=== PATIENT | female | born 1950 | race Caucasian/White ===

== ENCOUNTER → 2018-10-15 | Outpatient (CLI) | payer MEDICARE ==
[~2018-10-15] MED LIST: ALL DAY ALLERGY10 M1; Aspirin EC81 MG PO; Benadryl25 MG; CARV6.25; CETI5 PO; Cytomel5 MCG PO; HYDACE5 PO; HYDCOR10 PO; IRON PO; LEVSOD75 PO; METO25 PO; NAPR550; NIFE60ER; NYST100000 PO; ROSU10TA PO; VENL150ER PO; VENL75; VYTORIN; XARELTO20 MG PO; ZOLP10 PO; Zestril40 MG PO
[2018-10-16 14:31] LABS: Adenovirus F 40/41 Not Detected (NOT DETECT); Astrovirus Not Detected (NOT DETECT); Campylobacter Sp Not Detected (NOT DETECT); Cryptosporidium Not Detected (NOT DETECT); Cyclospora Cayetanensis Not Detected (NOT DETECT); E. Coli O157 Not Detected (NOT DETECT); Entamoeba Histolytica Not Detected (NOT DETECT); Enteroaggregative E. coli-EAEC Not Detected (NOT DETECT); Enteropathogenic E. coli-EPEC Not Detected (NOT DETECT); Enterotoxigenic E. coli-ETEC Not Detected (NOT DETECT); Giardia Lamblia Not Detected (NOT DETECT); Norovirus GI/GII Not Detected (NOT DETECT); Plesiomonas Shigelloides Not Detected (NOT DETECT); Rotavirus A Not Detected (NOT DETECT); Salmonella Sp Not Detected (NOT DETECT); Sapovirus Not Detected (NOT DETECT); Shiga Toxin-prod E. coli-STEC Not Detected (NOT DETECT); Shigella/Enteroin E. coli-EIEC Not Detected (NOT DETECT); Vibrio Cholerae Not Detected (NOT DETECT); Vibrio Sp Not Detected (NOT DETECT); Yersinia Enterocolitica Not Detected (NOT DETECT)
== END | disposition home or self-care (01) ==
LOC: LAB 08:46 → LAB SHORT 08:46 → LAB FUT 10-13 15:00
PROVIDERS: Legal Medicine
DX: R19.7 Diarrhea, unspecified (principal)
CPT/HCPCS: 87507

== ENCOUNTER 2021-02-05 17:58 | Emergency (ER) | payer MEDICARE | END 2021-02-05 18:15 | disposition home or self-care (01) | LOC: ER 17:58 | DX: U07.1 COVID-19 (principal); Z88.0 Allergy status to penicillin; Z79.899 Other long term (current) drug therapy; Z79.82 Long term (current) use of aspirin; Z87.891 Personal history of nicotine dependence | CPT/HCPCS: 99282 ==

== ENCOUNTER 2021-02-14 13:09 | Inpatient (IN) | payer MEDICARE ==
[~2021-02-14] VITALS: Ht 175.3 cm; Wt 139.0 kg
[2021-02-14 14:12] LABS: BASOPHILS ABSOLUTE AUTO 0.07 K/mm3 (0.00-0.23); BASOPHILS PERCENT AUTO 0 % (0-2); EOSINOPHILS PERCENT AUTO 0 % (0-6); Hematocrit 43.5 % (33.0-51.0); Hemoglobin 14.3 g/dL (11.5-16.0); IMMATURE GRAN ABSOLUTE AUTO 0.24 K/mm3 (0.00-0.10); IMMATURE GRAN PERCENT AUTO 1 % (0-1); LYMPHOCYTES ABSOLUTE AUTO 1.06 K/mm3 (0.84-5.20); LYMPHOCYTES PERCENT AUTO 5 % (21-46); MONOCYTES ABSOLUTE AUTO 1.69 K/mm3 (0.16-1.47); MONOCYTES PERCENT AUTO 8 % (4-13); Mean Corpuscular HGB Conc 32.9 g/dL (31.5-36.5); Mean Corpuscular Volume 79 fL (80-100); NEUTROPHILS ABSOLUTE AUTO 17.05 K/mm3 (1.96-9.15); NEUTROPHILS PERCENT AUTO 85 % (41-73); NRBC ABSOLUTE 0.02 K/mm3 (0.00-0.02); NRBC Auto 0.1 /100 WBC (0.0-0.2); Platelet Count 378 K/mm3 (150-400); RDW Coefficient Variation 13.9 % (11.7-14.2); RDW Standard Deviation 40.1 fL (35.1-46.3); Red Blood Cell Count 5.49 M/mm3 (3.80-5.20); White Blood Cell Count 20.11 K/mm3 (4.00-11.30)
[2021-02-14 14:39] LABS: Magnesium, Blood 2.4 mg/dL (1.6-2.4)
[2021-02-14 14:52] LABS: Albumin, Blood 2.9 g/dL (3.4-5.0); Albumin/Globulin Ratio 0.7 (0.8-1.8); Bilirubin, Total 0.7 mg/dL (0.1-1.0); Bun/Creatinine Ratio 9.7 (12.0-20.0); Calcium, Blood 8.9 mg/dL (8.5-10.1); Creatinine, Blood 18.3 mg/dL (0.40-1.00); Globulin, Blood 4.1 g/dL (2.2-4.0); Potassium, Blood 4.6 mmol/L (3.5-5.5)
[2021-02-14 15:45] LABS: Source, Urine Clean Catch
[2021-02-14 15:57] LABS: Appearance, Urine Hazy (Clear); Blood, Urine 4+ (Neg); Color, Urine Yellow (P-Yellow); Glucose Qualitative, Urine Neg (Neg); Ketones, Urine 1+ (Neg); Leukocyte Esterase, Urine 3+ (Neg); Nitrite, Urine Neg (Neg); Protein, Urine 3+ (Neg); Specific Gravity, Urine 1.025 (1.003-1.022); Urobilinogen, Urine NORM (Normal)
[2021-02-14 16:02] LABS: Bilirubin, Urine 2+ (Neg)
[2021-02-14 16:07] LABS: Bacteria Many /hpf; Squamous Epithelial Cells Rare /hpf (Few); White Blood Cells, Urine 50-100 /hpf (0-5)
[2021-02-14] MEDS ORDERED: TRAZ50 (19:54)
[2021-02-15 06:14] LABS: BASOPHILS ABSOLUTE AUTO 0.06 K/mm3 (0.00-0.23); BASOPHILS PERCENT AUTO 0 % (0-2); EOSINOPHILS ABSOLUTE AUTO 0.06 K/mm3 (0.00-0.68); EOSINOPHILS PERCENT AUTO 0 % (0-6); Hematocrit 36.6 % (33.0-51.0); Hemoglobin 12.7 g/dL (11.5-16.0); IMMATURE GRAN ABSOLUTE AUTO 0.11 K/mm3 (0.00-0.10); IMMATURE GRAN PERCENT AUTO 1 % (0-1); LYMPHOCYTES ABSOLUTE AUTO 1.54 K/mm3 (0.84-5.20); LYMPHOCYTES PERCENT AUTO 11 % (21-46); MONOCYTES ABSOLUTE AUTO 1.61 K/mm3 (0.16-1.47); MONOCYTES PERCENT AUTO 12 % (4-13); Mean Corpuscular HGB 26.6 pg (26.0-34.0); Mean Corpuscular HGB Conc 34.7 g/dL (31.5-36.5); Mean Corpuscular Volume 77 fL (80-100); Mean Platelet Volume 10.4 fL (9.1-12.4); NEUTROPHILS ABSOLUTE AUTO 10.59 K/mm3 (1.96-9.15); NEUTROPHILS PERCENT AUTO 76 % (41-73); Platelet Count 278 K/mm3 (150-400); RDW Coefficient Variation 13.3 % (11.7-14.2); RDW Standard Deviation 37.2 fL (35.1-46.3); Red Blood Cell Count 4.78 M/mm3 (3.80-5.20); White Blood Cell Count 13.97 K/mm3 (4.00-11.30)
[2021-02-15 06:46] LABS: Magnesium, Blood 2.4 mg/dL (1.6-2.4)
[2021-02-15 07:03] LABS: Albumin, Blood 2.4 g/dL (3.4-5.0); Anion Gap 18 mmol/L (6-16); Blood Urea Nitrogen 180 mg/dL (8-24); Bun/Creatinine Ratio 10.7 (12.0-20.0); CO2, Blood 17 mmol/L (21-32); Calcium, Blood 7.6 mg/dL (8.5-10.1); Chloride, Blood 97 mmol/L (98-108); Glomerular Filtration Rate 2 (60-); Glucose, Blood 121 mg/dL (70-99); Phosphorus, Blood 7.9 mg/dL (2.5-4.9); Potassium, Blood 3.7 mmol/L (3.5-5.5); Sodium, Blood 132 mmol/L (136-145)
--- NOTE | 2021-02-15 20:24 | NUR ---
SHIFT SUMMARY: NO ACUTE EVENTS TO REPORT THIS SHIFT. NO C/O PAIN THIS SHIFT. PT A&O; CALM AND COOPERATIVE WITH CARE. IV ABX & BICARB CONTINUING. REPORT GIVEN TO ONCOMING RN.
[2021-02-16 05:09] LABS: Hematocrit 38.1 % (33.0-51.0); Hemoglobin 13.1 g/dL (11.5-16.0)
[2021-02-16 05:52] LABS: Magnesium, Blood 2.3 mg/dL (1.6-2.4)
[2021-02-16 06:02] LABS: Albumin, Blood 2.4 g/dL (3.4-5.0); Anion Gap 13 mmol/L (6-16); CO2, Blood 26 mmol/L (21-32); Calcium, Blood 7.7 mg/dL (8.5-10.1); Chloride, Blood 95 mmol/L (98-108); Glucose, Blood 132 mg/dL (70-99); Phosphorus, Blood 6.3 mg/dL (2.5-4.9); Potassium, Blood 3.7 mmol/L (3.5-5.5); Sodium, Blood 134 mmol/L (136-145)
[2021-02-16 06:04] LABS: Blood Urea Nitrogen 165 mg/dL (8-24); Bun/Creatinine Ratio 13.9 (12.0-20.0); Glomerular Filtration Rate 3 (60-)
--- NOTE | 2021-02-16 06:32 | NUR ---
SHIFT SUMMARRY;QUIET IN HER ROOM MOST OF THE NIGHT. LAB REPORTS CREATININE OF 11.9 WHICH IS DOWN 16.1. NO ACUTE ISSUES
[2021-02-17 05:10] LABS: Hematocrit 39.6 % (33.0-51.0); Hemoglobin 13.3 g/dL (11.5-16.0)
--- NOTE | 2021-02-17 05:37 | NUR ---
SHIFT SUMMARY AOX4. VSS. SPO2 >90% ON RA. COVID +. DENIES SOB @REST. REPORTS CHRONIC 3-4/10 PAIN IN R KNEE, MEDICATED 1X c TYLENOL & REPOSITIONED. CLEANSED FOLDS & APPLIED ABD PADS, ALONG c MICONAZOLE POWDER. YEASTY RASH & A FEW ULCERATIONS UNDER PANNUS. CALL LIGHT IN REACH.
[2021-02-17 05:45] LABS: Albumin, Blood 2.6 g/dL (3.4-5.0); Anion Gap 12 mmol/L (6-16); Blood Urea Nitrogen 144 mg/dL (8-24); Bun/Creatinine Ratio 19.7 (12.0-20.0); CO2, Blood 25 mmol/L (21-32); Calcium, Blood 7.8 mg/dL (8.5-10.1); Chloride, Blood 102 mmol/L (98-108); Glomerular Filtration Rate 6 (60-); Glucose, Blood 107 mg/dL (70-99); Phosphorus, Blood 5.2 mg/dL (2.5-4.9); Potassium, Blood 3.1 mmol/L (3.5-5.5); Sodium, Blood 139 mmol/L (136-145)
--- NOTE | 2021-02-17 18:11 | NUR ---
PATIENT A/OX4, CALLS APPROPRIATELY FOR ASSISTANCE THIS SHIFT. CONTINUES ON RA, VSS. PAINFUL YEAST RASH UNDER PANNUS AND R BREAST, WOUNDS CLEANSED AND PILLOW CASE PLACED UNDER FOLD. ANTIFUNGAL POWDER APPLIED TO FOLDS AND ORAL DIFFLUCAN GIVEN TO TREAT. NS @ 50ML/HR INFUSING. TOLERATING RENAL DIET. CALM AND COOPERATIVE WITH CARE.
--- NOTE | 2021-02-18 06:13 | NUR ---
SHIFT SUMMARY AOX4. VSS. SPO2 >90% ON RA. DENIES SOB. COVID +. REPORTS FEELING THIRSTY & THE ABILITY TO SMELL. CLEANSED & DRIED PANNUS ULCER, HAS MOD AMOUNT SEROSANGUINOUS DRAINAGE. HAD SMALL INCONT/CONT LOOSE BROWN/YELLOW BM THIS AM. INCONT OF URINE. CALL LIGHT IN REACH.
[2021-02-18 08:35] LABS: Albumin, Blood 2.7 g/dL (3.4-5.0); Anion Gap 10 mmol/L (6-16); Blood Urea Nitrogen 110 mg/dL (8-24); Bun/Creatinine Ratio 28.9 (12.0-20.0); CO2, Blood 24 mmol/L (21-32); Calcium, Blood 8.9 mg/dL (8.5-10.1); Chloride, Blood 109 mmol/L (98-108); Creatinine, Blood 3.81 mg/dL (0.40-1.00); Glomerular Filtration Rate 12 (60-); Glucose, Blood 102 mg/dL (70-99); Phosphorus, Blood 3.7 mg/dL (2.5-4.9); Potassium, Blood 3.5 mmol/L (3.5-5.5); Sodium, Blood 143 mmol/L (136-145)
--- NOTE | 2021-02-18 14:27 | NUR ---
pt told she tested + for covid 01/28, clinic said it was the , pt acknowleged she was too hopeful and that the sounded right, informmed and infection control, pt states she is planning on going home tomorrow
--- NOTE | 2021-02-19 04:50 | NUR ---
PT A&OX4. PT COMPLAINED OF LEFT KNEE PAIN, PAIN MEDICINE GIVEN. PT CALM AND IS RESTING. VITALS STABLE. NO ACUTE EVENTS OVER NIGHT.
[2021-02-19 05:29] LABS: BASOPHILS ABSOLUTE AUTO 0.06 K/mm3 (0.00-0.23); BASOPHILS PERCENT AUTO 1 % (0-2); EOSINOPHILS ABSOLUTE AUTO 0.26 K/mm3 (0.00-0.68); EOSINOPHILS PERCENT AUTO 3 % (0-6); Hematocrit 39.2 % (33.0-51.0); Hemoglobin 12.7 g/dL (11.5-16.0); IMMATURE GRAN ABSOLUTE AUTO 0.12 K/mm3 (0.00-0.10); IMMATURE GRAN PERCENT AUTO 1 % (0-1); LYMPHOCYTES ABSOLUTE AUTO 1.76 K/mm3 (0.84-5.20); LYMPHOCYTES PERCENT AUTO 19 % (21-46); MONOCYTES ABSOLUTE AUTO 1.35 K/mm3 (0.16-1.47); MONOCYTES PERCENT AUTO 15 % (4-13); Mean Corpuscular HGB 26.6 pg (26.0-34.0); Mean Corpuscular HGB Conc 32.4 g/dL (31.5-36.5); Mean Corpuscular Volume 82 fL (80-100); Mean Platelet Volume 10.5 fL (9.1-12.4); NEUTROPHILS ABSOLUTE AUTO 5.72 K/mm3 (1.96-9.15); NEUTROPHILS PERCENT AUTO 62 % (41-73); Platelet Count 261 K/mm3 (150-400); RDW Coefficient Variation 13.6 % (11.7-14.2); RDW Standard Deviation 40.2 fL (35.1-46.3); Red Blood Cell Count 4.78 M/mm3 (3.80-5.20); White Blood Cell Count 9.27 K/mm3 (4.00-11.30)
[2021-02-19 06:01] LABS: Albumin, Blood 2.5 g/dL (3.4-5.0); Anion Gap 6 mmol/L (6-16); Blood Urea Nitrogen 80 mg/dL (8-24); Bun/Creatinine Ratio 30.7 (12.0-20.0); CO2, Blood 27 mmol/L (21-32); Calcium, Blood 8.4 mg/dL (8.5-10.1); Chloride, Blood 112 mmol/L (98-108); Creatinine, Blood 2.61 mg/dL (0.40-1.00); Glomerular Filtration Rate 18 (60-); Glucose, Blood 96 mg/dL (70-99); Magnesium, Blood 1.6 mg/dL (1.6-2.4); Phosphorus, Blood 2.9 mg/dL (2.5-4.9); Potassium, Blood 3.9 mmol/L (3.5-5.5); Sodium, Blood 145 mmol/L (136-145)
--- NOTE | 2021-02-19 18:38 | NUR ---
a+o, cleaned and treated skin folds, medicated as prescribed, call light in reach, no s/sx of infection or infiltration, rm air, will continue to monitor and treat until share report with noc nurse
[2021-02-20 05:33] LABS: Hemoglobin 12.6 g/dL (11.5-16.0)
--- NOTE | 2021-02-20 05:42 | NUR ---
PT ORIENTED. MASD CLEANED AND REDRESED. PT NOT REPORTING ANY PAIN. RESTING COMFORTABLY.
[2021-02-20 06:08] LABS: Albumin, Blood 2.4 g/dL (3.4-5.0); Anion Gap 6 mmol/L (6-16); Blood Urea Nitrogen 51 mg/dL (8-24); Bun/Creatinine Ratio 24.5 (12.0-20.0); CO2, Blood 26 mmol/L (21-32); Calcium, Blood 8.2 mg/dL (8.5-10.1); Chloride, Blood 114 mmol/L (98-108); Creatinine, Blood 2.08 mg/dL (0.40-1.00); Glomerular Filtration Rate 24 (60-); Glucose, Blood 97 mg/dL (70-99); Phosphorus, Blood 2.4 mg/dL (2.5-4.9); Potassium, Blood 3.7 mmol/L (3.5-5.5); Sodium, Blood 146 mmol/L (136-145)
[2021-02-20] MEDS ORDERED: ELIQUIS5 M2 PO (13:10)
[2021-02-20] MEDS ORDERED: LACT PO (13:13)
[2021-02-20] MEDS ORDERED: CIPR250 PO (13:13)
[2021-02-20] MEDS ORDERED: CHOLESTYRAMI239.4 G1 PO (13:13)
--- NOTE | 2021-02-20 14:56 | NUR ---
DISCHARGE NOTE PT IV REMOVED BY THIS RN PER DOCUMENTATION. DC INSTRUCTIONS AND MEDICATIONS REVIEWED WITH PT WHO VERBALIZED UNDERSTANDING. PT ASSISTED INTO HOME CLOTHING BY PAPER BALER. BELONGINGS GATHERED FROM ROOM. PT ASSISTED INTO WHEELCHAIR BY PAPER BALER. PT HAS LEFT BUILDING TO PRIVATE VEHICLE WITH BELONGINGS PRESENT.
== END 2021-02-20 14:55 | disposition home or self-care (01) | DRG 871 ==
LOC: ER 13:09 → MEDS 17:32 → ENPENDDIS 02-20 12:33 → MEDS 02-20 14:55
PROVIDERS: Internal Medicine; Internal Medicine Nephrology; Physician Assistant; ADMIT Internal Medicine
DX: A41.59 Other Gram-negative sepsis (principal); U07.1 COVID-19; Z68.41 Body mass index [BMI] 40.0-44.9, adult; N17.9 Acute kidney failure, unspecified; E87.1 Hypo-osmolality and hyponatremia; E87.2 Acidosis; I48.20 Chronic atrial fibrillation, unspecified; A08.39 Other viral enteritis; N30.00 Acute cystitis without hematuria; E87.0 Hyperosmolality and hypernatremia; Z16.11 Resistance to penicillins; E03.9 Hypothyroidism, unspecified; E86.9 Volume depletion, unspecified; N18.30 Chronic kidney disease, stage 3 unspecified; E86.0 Dehydration; E78.5 Hyperlipidemia, unspecified; D63.1 Anemia in chronic kidney disease; E88.09 Other disorders of plasma-protein metabolism, not elsewhere classified; E66.01 Morbid (severe) obesity due to excess calories; M79.3 Panniculitis, unspecified; R65.20 Severe sepsis without septic shock; B37.2 Candidiasis of skin and nail; E83.39 Other disorders of phosphorus metabolism; E87.6 Hypokalemia; E83.42 Hypomagnesemia; K58.9 Irritable bowel syndrome, unspecified; I12.9 Hypertensive chronic kidney disease with stage 1 through stage 4 chronic kidney disease, or unspecified chronic kidney disease; Z90.49 Acquired absence of other specified parts of digestive tract; Z98.890 Other specified postprocedural states; Z88.0 Allergy status to penicillin; Z86.16 Personal history of COVID-19; Z98.42 Cataract extraction status, left eye; Z98.41 Cataract extraction status, right eye; Z79.82 Long term (current) use of aspirin; Z79.899 Other long term (current) drug therapy; Z79.01 Long term (current) use of anticoagulants
CPT/HCPCS: 36415; 71045; 74176; 80053; 80069; 81001; 82550; 83605; 83735; 84145; 84443; 85014; 85018; 85025; 86140; 87040; 87077; 87086; 87186; 93005; 93010; 96361; 96365; 97110; 97162; 97530; 99285-25; A9270; J0696; J0744; J2405; J3475; J3480; J7030; J7060; J7070; J7120

== ENCOUNTER → 2022-07-07 | Outpatient (CLI) | payer OTHER ==
[~2022-07-07] MED LIST changes: +CHOLESTYRAMI239.4 G1 PO; +CIPR250 PO; +ELIQUIS5 M2 PO; +LACT PO; +TRAZ50
[2022-07-08 11:20] LABS: Stool Occult Blood Guaiac 1 Neg (Neg)
== END ==
LOC: LAB 09:30 → LAB SHORT 09:30 → LAB FUT 08-24 15:40 → EDSTATUS 08-24 15:40
PROVIDERS: Internal Medicine Gastroenterology
DX: K76.0 Fatty (change of) liver, not elsewhere classified (principal); Z86.010 Personal history of colon polyps
CPT/HCPCS: 82270

== ENCOUNTER → 2024-03-15 | Outpatient (CLI) | payer OTHER ==
[~2024-03-15] MED LIST changes: +AZIT500 PO; +Clotrimazole-Be15 GM; +DULOXETINE HCL60 M1 PO; +ELLURA200 MG PO; +EZETIMIBE10 M6; +Lisinopril2.5 MG; +MOUNJARO7.5 MG/0.5 SQ; +PROG100 PO; +SULTRIDS PO; +TRAZ50 PO; +TURMERIC ROOT5000 GM; +[UNRECOGNIZED DRUG - OTHER]
[2024-03-15 13:37] LABS: BASOPHILS ABSOLUTE AUTO 0.09 K/mm3 (0.00-0.23); BASOPHILS PERCENT AUTO 1 % (0-2); EOSINOPHILS PERCENT AUTO 1 % (0-6); Hematocrit 43.2 % (33.0-51.0); Hemoglobin 13.7 g/dL (11.5-16.0); IMMATURE GRAN ABSOLUTE AUTO 0.02 K/mm3 (0.00-0.10); IMMATURE GRAN PERCENT AUTO 0 % (0-1); LYMPHOCYTES ABSOLUTE AUTO 2.04 K/mm3 (0.84-5.20); LYMPHOCYTES PERCENT AUTO 27 % (21-46); MONOCYTES ABSOLUTE AUTO 0.55 K/mm3 (0.16-1.47); MONOCYTES PERCENT AUTO 7 % (4-13); Mean Corpuscular HGB 27.3 pg (26.0-34.0); Mean Corpuscular HGB Conc 31.7 g/dL (31.5-36.5); Mean Corpuscular Volume 86 fL (80-100); Mean Platelet Volume 9.9 fL (9.1-12.4); NEUTROPHILS ABSOLUTE AUTO 4.68 K/mm3 (1.96-9.15); NEUTROPHILS PERCENT AUTO 63 % (41-73); Platelet Count 234 K/mm3 (150-400); RDW Coefficient Variation 12.5 % (11.7-14.2); RDW Standard Deviation 39.3 fL (35.1-46.3); Red Blood Cell Count 5.02 M/mm3 (3.80-5.20); White Blood Cell Count 7.48 K/mm3 (4.00-11.30)
[2024-03-15 13:48] LABS: Albumin, Blood 3.3 g/dL (3.4-5.0); Anion Gap 12 mmol/L (3-11); Blood Urea Nitrogen 15 mg/dL (8-24); Bun/Creatinine Ratio 7.7 (12.0-20.0); CO2, Blood 30 mmol/L (21-32); Chloride, Blood 103 mmol/L (98-108); Creatinine, Blood 1.95 mg/dL (0.40-1.00); Glomerular Filtration Rate 27 (60-); Glucose, Blood 91 mg/dL (70-99); Phosphorus, Blood 3.6 mg/dL (2.5-4.9); Potassium, Blood 3.9 mmol/L (3.5-5.5); Sodium, Blood 141 mmol/L (136-145)
== END | disposition home or self-care (01) ==
LOC: LAB SHORT 13:33 → LAB 13:33
PROVIDERS: Chiropractor
DX: N18.4 Chronic kidney disease, stage 4 (severe) (principal); N30.00 Acute cystitis without hematuria
CPT/HCPCS: 80069; 85025; 87077; 87086; 87186

== ENCOUNTER 2024-04-17 07:03 | Day surgery (SDC) | payer OTHER ==
[~2024-04-17] VITALS: Ht 172.7 cm; Wt 108.0 kg
[2024-04-17] VITALS (13 sets, daily range): BP systolic 86–140; BP diastolic 53–89
[~2024-04-17 07:03] MED LIST changes: +ALBU90OI INH; +Acetaminophen 500 MG Tab PO SCH; +CeFAZolin Sodium 2,000 MG in NS 100 ML IV SCH; +Chlorhexidine Mouth Care 15 ML UDC MT SCH; +DULO30 PO; -DULOXETINE HCL60 M1 PO; +EZET10 PO; -EZETIMIBE10 M6; +HYDCHL25 PO; +LISI20 PO; +Lactated Ringer's 1,000 ML IV SCH; -METO25 PO; +METOPROLOL TART PO; +MOUNJARO10 MG/0.5 SQ; +NITR.4SL SL; +OZEMPIC0.25 MG/02 SC; +OxyCODONE HCL 10 MG TABCR PO SCH; +Tranexamic Acid 100 ML IV SCH; +Vitamin D1000 UNI1 PO
[2024-04-17] MEDS ORDERED: CeFAZolin Sodium 2,000 MG VIAL ONE (07:25)
[2024-04-17] MEDS ORDERED: Ropivacaine 0.5% HCl/Pf 123.125 MG,EPINEPHrine HCL 0.25 MG,Clonidine HCl/Pf 40 MCG in N... INFIL SCH (07:45)
[2024-04-17] MEDS ORDERED: Ropivacaine 0.5% HCl/Pf 123.125 MG,EPINEPHrine HCL 0.25 MG,Ketorolac Tromethamine 15 MG... INFIL SCH (07:55)
--- NOTE | 2024-04-17 07:56 | NUR ---
History, Chart, Medications and Allergies reviewed before start of procedure. Patient confirms NPO status and agrees with scheduled surgery.
[2024-04-17] MEDS ORDERED: Dexamethasone Sod Phos 10 MG/ML 1ML VIAL ONE (08:12)
[2024-04-17] MEDS ORDERED: FentaNYL Citrate 50 MCG/ML 2 ML Injection ONE (08:12)
[2024-04-17] MEDS ORDERED: Lidocaine HCl 2% 20 ML MDV ONE (08:12)
[2024-04-17] MEDS ORDERED: Ondansetron HCl 2 MG / ML 2ML Vial ONE (08:12)
[2024-04-17] MEDS ORDERED: propofoL 40 ML IV ONE ×2 (08:12→09:23)
[2024-04-17] MEDS ORDERED: Bupivacaine 0.5% HCl 5 MG/ML 30MLVIAL ONE (08:13)
--- NOTE | 2024-04-17 08:37 | NUR ---
DENTURES LEFT IN PER DR COX. GLASSES BROUGHT TO PACU FOR SAFE KEEPING DURING SURGERY.
[2024-04-17] MEDS ORDERED: Phenylephrine HCl 10mg/ml 1 ml Vial ONE (09:11)
--- NOTE | 2024-04-17 09:28 | NUR ---
04/17/24 0928 Maryann Kidd SPINAL BLOCK COMPLETED BY DR. COX UPON ENTRY TO OR. PATIENT TOLERATED WELL.
[2024-04-17] MEDS ORDERED: Promethazine HCl 25 MG Tab PO PRN (09:40)
[2024-04-17] MEDS ORDERED: Lactated Ringer's 1,000 ML IV SCH (09:40)
[2024-04-17] MEDS ORDERED: Metoclopramide HCl 5MG / ML 2ML Vial IV PRN (09:40)
[2024-04-17] MEDS ORDERED: DiphenhydrAMINE HCL 25 MG Cap PO PRN (09:40)
[2024-04-17] MEDS ORDERED: Magnesium Hydroxide Conc 10 ML UDC PO PRN (09:40)
[2024-04-17] MEDS ORDERED: Bisacodyl 10 MG Supp PR PRN (09:40)
[2024-04-17] MEDS ORDERED: OxyCODONE HCL 5 MG TAB PO PRN ×2 (09:45)
[2024-04-17] MEDS ORDERED: Ondansetron HCl 2 MG / ML 2ML Vial IV PRN (09:45)
[2024-04-17] MEDS ORDERED: HYDROmorphone HCl/Pf 1MG SYR IV PRN (09:45)
[2024-04-17] MEDS ORDERED: FLU VACC TS2024-25(6MOS UP)/PF 45 MCG/0.5 ML SYRINGE IM PRN (09:45)
[2024-04-17] MEDS ORDERED: propofoL 20 ML IV ONE (09:54)
[2024-04-17] MEDS ORDERED: Insulin Regular 100 UNIT/ML 10ML Vial SC SCH (11:30)
--- NOTE | 2024-04-17 12:15 | NUR ---
PT ARRIVED TO THE ROOM FROM PACU AT APPROXIMATELY 1117. PT DENIES PAIN. SENSATION AT L2 UPON ARRIVAL AND PT UNABLE TO MOVE BLE. SPINAL ANESTHESIA SITE WNL. PT REPORTED MILD NAUSEA, ZOFRAN GIVEN. FAMILY AT BEDSIDE FOR SUPPORT. PT EDUCATED TO USE HER CALL LIGHT, IT WAS PLACED WITHIN REACH. VSS. PT ON RA.
[2024-04-17] MEDS ORDERED: Acetaminophen 500 MG Tab PO SCH (16:00)
[2024-04-17] MEDS ORDERED: CeFAZolin Sodium 2,000 MG in NS 100 ML IV SCH (16:00)
--- NOTE | 2024-04-17 16:41 | NUR ---
DISCHARGE PT PROVIDED WITH WRITTEN AND VERBAL DISCHARGE INSTRUCTIONS BY MAXIM ARIZA. CLEAN DRESSINGS PROVIDED. PT CLEARED THERAPY, SHE WAS ABLE TO VOID, TOLERATED PO AND PAIN MANAGED PRIOR TO DISCHARGE. PT ASSISTED OUT IN W/C AT 8545
[2024-04-17] MEDS ORDERED: Ezetimibe 10 MG Tab PO SCH (21:00)
[2024-04-17] MEDS ORDERED: TraZODone HCl 100 MG Tab PO SCH (21:00)
[2024-04-17] MEDS ORDERED: Docusate Sodium 100 MG Cap PO SCH (21:00)
[2024-04-17] MEDS ORDERED: Metoprolol Tartrate 50 MG Tab PO SCH (21:00)
[2024-04-17] MEDS ORDERED: Progesterone, Micronized 100 MG Cap PO SCH (21:00)
[2024-04-18] MEDS ORDERED: Levothyroxine Sodium 0.075 MG Tab PO SCH (06:00)
[2024-04-18] MEDS ORDERED: HydroCHLOROthiazide 25 mg Tab PO SCH (09:00)
[2024-04-18] MEDS ORDERED: Apixaban 5 MG Tab PO SCH (09:00)
[2024-04-18] MEDS ORDERED: DULoxetine HCL 30 MG Cap DR PO SCH (09:00)
[2024-04-18] MEDS ORDERED: Lisinopril 20 MG Tab PO SCH (09:00)
== END 2024-04-17 16:41 | disposition home or self-care (01) ==
LOC: ORSCMMR 07:03 → ORD 08:15 → ORSCMMR 08:15 → SURS 11:11 → ORD 12:30 → ORSCMMR 16:41
PROVIDERS: Orthopaedic Surgery
PROC: 0SRD0JA Replacement of Left Knee Joint with Synthetic Substitute, Uncemented, Open Approach (ICD-10-PCS; principal; 2024-04-17 08:15)
DX: M17.12 Unilateral primary osteoarthritis, left knee (principal); I12.9 Hypertensive chronic kidney disease with stage 1 through stage 4 chronic kidney disease, or unspecified chronic kidney disease; N18.9 Chronic kidney disease, unspecified; I48.91 Unspecified atrial fibrillation; Z79.01 Long term (current) use of anticoagulants; G47.33 Obstructive sleep apnea (adult) (pediatric); Z87.891 Personal history of nicotine dependence; E03.9 Hypothyroidism, unspecified; E66.9 Obesity, unspecified; Z68.36 Body mass index [BMI] 36.0-36.9, adult; M79.7 Fibromyalgia; F41.9 Anxiety disorder, unspecified; F32.A Depression, unspecified; Z79.899 Other long term (current) drug therapy
CPT/HCPCS: 73560-LT; 82947; 97110; 97116; 97161; A9270; C1713; C1776; J0171; J0690; J0735; J1100; J2371; J2405; J2704; J2795; J3010; J7120

== ENCOUNTER 2024-10-15 09:59 | Emergency (ER) | payer OTHER ==
[~2024-10-15] VITALS: Ht 172.7 cm; Wt 111.1 kg
[~2024-10-15 09:59] MED LIST changes: -Acetaminophen 500 MG Tab PO SCH; -CeFAZolin Sodium 2,000 MG in NS 100 ML IV SCH; -Chlorhexidine Mouth Care 15 ML UDC MT SCH; -Lactated Ringer's 1,000 ML IV SCH; -OxyCODONE HCL 10 MG TABCR PO SCH; -Tranexamic Acid 100 ML IV SCH
[2024-10-15 10:12] VITALS: BP 122/104
[2024-10-15 10:56] LABS: BASOPHILS ABSOLUTE AUTO 0.07 K/mm3 (0.00-0.23); BASOPHILS PERCENT AUTO 1 % (0-2); EOSINOPHILS ABSOLUTE AUTO 0.16 K/mm3 (0.00-0.68); EOSINOPHILS PERCENT AUTO 1 % (0-6); Hematocrit 40.4 % (33.0-51.0); Hemoglobin 12.8 g/dL (11.5-16.0); IMMATURE GRAN PERCENT AUTO 1 % (0-1); LYMPHOCYTES PERCENT AUTO 10 % (21-46); MONOCYTES ABSOLUTE AUTO 1.26 K/mm3 (0.16-1.47); MONOCYTES PERCENT AUTO 9 % (4-13); Mean Corpuscular HGB 25.9 pg (26.0-34.0); Mean Corpuscular HGB Conc 31.7 g/dL (31.5-36.5); Mean Corpuscular Volume 82 fL (80-100); Mean Platelet Volume 9.8 fL (9.1-12.4); NEUTROPHILS ABSOLUTE AUTO 10.72 K/mm3 (1.96-9.15); NEUTROPHILS PERCENT AUTO 78 % (41-73); Platelet Count 255 K/mm3 (150-400); RDW Coefficient Variation 13.3 % (11.7-14.2); RDW Standard Deviation 39.8 fL (35.1-46.3); Red Blood Cell Count 4.94 M/mm3 (3.80-5.20); White Blood Cell Count 13.71 K/mm3 (4.00-11.30)
[2024-10-15 11:28] LABS: Albumin, Blood 2.9 g/dL (3.4-5.0); Albumin/Globulin Ratio 0.7 (0.8-1.8); Bilirubin, Total 0.5 mg/dL (0.1-1.0); Bun/Creatinine Ratio 12.8 (12.0-20.0); Calcium, Blood 8.9 mg/dL (8.5-10.1); Creatinine, Blood 2.27 mg/dL (0.40-1.00); Globulin, Blood 3.9 g/dL (2.2-4.0); Total Protein, Blood 6.8 g/dL (6.4-8.2)
[2024-10-15] MEDS ORDERED: Prochlorperazine Edisylate 10 mg Vial IV ONE (14:05)
[2024-10-15] MEDS ORDERED: DiphenhydrAMINE HCl 50 MG/ML 1ML Vial IV ONE (14:05)
[2024-10-15] MEDS ORDERED: HYDROcodone 5-APAP 325 TAB PO ONE (15:35)
[2024-10-15] MEDS ORDERED: AMOCLA875 PO (16:54)
[2024-10-15] MEDS ORDERED: HYDR1TAB94 PO (16:54)
== END 2024-10-15 17:13 | disposition home or self-care (01) ==
LOC: ER 09:59
PROVIDERS: Student in an Organized Health Care Education/Training Program
DX: J32.3 Chronic sphenoidal sinusitis (principal); H57.04 Mydriasis; Z88.0 Allergy status to penicillin; Z88.8 Allergy status to other drugs, medicaments and biological substances; Z79.890 Hormone replacement therapy; Z79.899 Other long term (current) drug therapy; Z79.01 Long term (current) use of anticoagulants; Z87.891 Personal history of nicotine dependence
CPT/HCPCS: 70450; 70460; 80053; 85025; 93005; 93010; 96374-59; 96375; 99284-25; A9270; J0780; J1200; Q9967

== ENCOUNTER 2025-01-02 08:18 | Day surgery (SDC) | payer OTHER ==
[~2025-01-02] VITALS: Ht 172.7 cm; Wt 113.2 kg
[2025-01-02] VITALS (15 sets, daily range): BP systolic 84–123; BP diastolic 41–86
[~2025-01-02 08:18] MED LIST changes: +AMOCLA875 PO; +HYDR1TAB94 PO
[2025-01-02] MEDS ORDERED: Verapamil HCL 2.5 MG/ML 2ML Injection ONE (08:36)
[2025-01-02] MEDS ORDERED: Heparin Sodium 1000 Units/ML 10ML MDV ONE (08:37)
[2025-01-02] MEDS ORDERED: NS 250 ML IV ONE ×2 (08:37→12:47)
[2025-01-02] MEDS ORDERED: NS 1,000 ML IV ONE ×2 (08:37→08:54)
[2025-01-02] MEDS ORDERED: Nitroglycerin 2 MG/20 ML BTL ONE (08:37)
[2025-01-02] MEDS ORDERED: FentaNYL Citrate 50 MCG/ML 2 ML Injection ONE (08:54)
[2025-01-02] MEDS ORDERED: Midazolam HCl 1MG / ML 2ML Vial ONE (08:54)
--- NOTE | 2025-01-02 10:42 | NUR ---
pt back to recovery from lab. pt sitting in recliner. pt a&o. radial site soft and non-tender per pt. no bleeding/hematoma noted. pt given tea by makayla per request.
--- NOTE | 2025-01-02 11:21 | NUR ---
radial site soft and non-teder per pt. no bleeding/ hematoma noted. brahial site soft and non-tender per pt. no bleeding/hematoma noted.
--- NOTE | 2025-01-02 11:46 | NUR ---
brachial and radial site both soft and non-tender per pt. no bleeding/hematoma noted. 2 cc removed from tr band.
--- NOTE | 2025-01-02 12:11 | NUR ---
TR BAND FULLY DEFLATED. RADIAL SITE SOFT AND NON-TENDER PER PT. NO BLEEDING/HEMATOMA NOTED.
--- NOTE | 2025-01-02 12:26 | NUR ---
DR CARRION AWARE OF PT BRADYCARDIA
--- NOTE | 2025-01-02 13:04 | NUR ---
dr abraham notified of hypotension. pt given 250cc bolus of ns per dr abraham.
[2025-01-02] MEDS ORDERED: TOPROL XL25 MG PO (13:29)
--- NOTE | 2025-01-02 13:42 | NUR ---
1331:PT AMBULATED TO RESTROOM W/O ASSISTANCE AMD DENIED ANY COMPLAINTS. REPEAT V/S SHOW BP INCREASE TO 123/58. DR CARRION OK TO DC PT. 1331: PT GIVEN DC INSTRUCTIONS AND VERBALIZED UNDERSTAIND, IV OUT. PT CHANGED AND TAKEN TO LBY VIA WC. KEESHA TO TAKE PT HOME. RADIAL AND BRACHAIL SITE SOFT AQND NON-TENDER PER PT. NO BLEEDING/HEMATOMA NOTED. CLOTH DOT AND ARM BOARD APPLIED.
== END 2025-01-02 13:30 | disposition home or self-care (01) ==
LOC: MHTC 08:18
DX: I35.0 Nonrheumatic aortic (valve) stenosis (principal); I13.0 Hypertensive heart and chronic kidney disease with heart failure and stage 1 through stage 4 chronic kidney disease, or unspecified chronic kidney disease; I50.9 Heart failure, unspecified; N18.9 Chronic kidney disease, unspecified; E78.5 Hyperlipidemia, unspecified; R93.1 Abnormal findings on diagnostic imaging of heart and coronary circulation; I48.91 Unspecified atrial fibrillation; Z87.891 Personal history of nicotine dependence; Z79.01 Long term (current) use of anticoagulants; Z79.890 Hormone replacement therapy; Z79.899 Other long term (current) drug therapy; Z88.6 Allergy status to analgesic agent; Z88.0 Allergy status to penicillin
CPT/HCPCS: 76937; 93456; 99152; C1769; C1887; C1894; J0461; J1644; J2250; J3010; J7030; J7050; Q9967